=== PATIENT | male | born 1995 | race Two or more races ===

== ENCOUNTER 2022-11-05 06:39 | Emergency (ER) | payer MEDICAID ==
[~2022-11-05] VITALS: Ht 162.6 cm; Wt 61.0 kg
[~2022-11-05 06:39] MED LIST: CEPH-571 PO; IBUP-1984 PO
[2022-11-05 06:57] VITALS: BP 97/65
[2022-11-05] MEDS ORDERED: HYDR28CR14 TOP (08:01)
[2022-11-05] MEDS ORDERED: SULF1TAB49 PO (08:01)
[2022-11-05] MEDS ORDERED: PERM60CR19 TOP (08:01)
== END 2022-11-05 08:21 | disposition home or self-care (01) ==
LOC: ER 06:39
DX: R21 Rash and other nonspecific skin eruption (principal); F12.10 Cannabis abuse, uncomplicated; Z90.49 Acquired absence of other specified parts of digestive tract; Z79.899 Other long term (current) drug therapy
CPT/HCPCS: 99283